=== PATIENT | female | born 1985 | race Caucasian/White ===

== ENCOUNTER → 2020-02-05 | Outpatient (REF) | payer OTHER ==
[2020-02-05 13:48] LABS: THYROID STIMULATING HORMONE 0.694 uIU/ML (0.358-3.740)
[2020-02-05 13:50] LABS: ESTRADIOL 349.2 PG/ML; PROGESTERONE 24.24 NG/ML
== END ==
LOC: M LABDRWAD 13:17
PROVIDERS: ATTEND Obstetrics & Gynecology Reproductive Endocrinology
DX: Z32.01 Encounter for pregnancy test, result positive (principal)

== ENCOUNTER → 2020-02-12 | Outpatient (CLI) | payer OTHER ==
--- NOTE | 2020-02-12 09:07 | REPVR ---
PROCEDURE INFORMATION: Exam: US , Transvaginal Exam date and time: 02/12/2020 8:18 AM Age: 34 years old Clinical indication: Screening exam; Routine US, uterus; Additional info: Dating and viability . Last menstrual period 01/08/2020. TECHNIQUE: Imaging protocol: Real-time transvaginal obstetrical ultrasound of the maternal pelvis and a first trimester with image documentation. Transvaginal imaging was used for better evaluation of the fetus and adnexa. COMPARISON: No relevant prior studies available. FINDINGS: Gestation: A circumscribed ovoid fluid collection within the uterine fundus compatible with a gestational sac and this appears to contain a small rounded yolk sac. Mean gestational sac diameter = 0.7 cm. No pole is identified. Visualization of the gestational sac is limited due to the position of the uterus within the pelvis. BIOMETRY: Gestational age (AUA): Estimated gestational age (based on mean gestational sac diameter) = 5 weeks 3 days. MATERNAL: Uterus: No uterine mass is visualized. Right adnexa: The right ovary measures 2.1 x 1.2 x 2.2 cm. The right ovary demonstrates color Doppler blood flow. No right adnexal mass is imaged. Left adnexa: The left ovary measures 2 x 1.4 x 1.7 cm. The left ovary demonstrates color Doppler blood flow. No left adnexal mass is imaged. IMPRESSION: Findings consistent with intrauterine with uncertain viability. Estimated gestational age is 5 weeks 3 days. Short-term follow-up ultrasound is recommended to confirm viability. Electronically signed by: Sean Lemons On 02/12/2020 09:06:35 AM
[2020-02-12 09:53] LABS: ESTRADIOL 292.3 PG/ML; PROGESTERONE 24.06 NG/ML
== END ==
LOC: M RAD 08:09
PROVIDERS: ATTEND Obstetrics & Gynecology Reproductive Endocrinology
DX: O09.01 Supervision of pregnancy with history of infertility, first trimester (principal); Z3A.01 Less than 8 weeks gestation of pregnancy

== ENCOUNTER → 2020-02-19 | Outpatient (CLI) | payer OTHER ==
--- NOTE | 2020-02-19 09:14 | REPVR ---
PROCEDURE INFORMATION: Exam: US , Transvaginal Exam date and time: 02/19/2020 8:47 AM Age: 34 years old Clinical indication: Screening exam; Routine US, uterus; Prior surgery; Surgery date: 6+ months; Surgery type: HX of ; Additional info: Eval for viability TECHNIQUE: Imaging protocol: Real-time transvaginal obstetrical ultrasound of the maternal pelvis and a first trimester with image documentation. Transvaginal imaging was used for better evaluation of the fetus and adnexa. COMPARISON: US OB 02/12/2020 8:37 AM FINDINGS: Gestation: Single viable intrauterine gestation. Yolk sac is present. heart rate: heart rate is 99 bpm. BIOMETRY: Gestational age (AUA): Sonographically estimated gestational age is 6 weeks. Estimated due date (AUA): Estimated date of delivery is 10/14/2020. Nye-Rump length: Nye-rump length the pole is 4 mm. MATERNAL: Right adnexa: Right ovary measures 1.6 x 2.1 x 1.4 cm. Left adnexa: Left ovary measures 2 x 2 x 1.7 cm. IMPRESSION: Single viable intrauterine gestation 6 weeks of age. Electronically signed by: Rito Pham On 02/19/2020 09:14:33 AM
== END ==
LOC: M RAD 08:19
PROVIDERS: ATTEND Obstetrics & Gynecology Reproductive Endocrinology
DX: O09.00 Supervision of pregnancy with history of infertility, unspecified trimester (principal); Z3A.01 Less than 8 weeks gestation of pregnancy

== ENCOUNTER → 2020-02-19 | Outpatient (CLI) | payer OTHER ==
[2020-02-19 12:36] LABS: PROGESTERONE 22.72 NG/ML
== END ==
LOC: M LAB 08:48
PROVIDERS: ATTEND Obstetrics & Gynecology Reproductive Endocrinology
DX: O09.00 Supervision of pregnancy with history of infertility, unspecified trimester (principal); Z3A.01 Less than 8 weeks gestation of pregnancy

== ENCOUNTER → 2020-02-26 | Outpatient (CLI) | payer OTHER ==
--- NOTE | 2020-02-26 09:39 | REPVR ---
PROCEDURE INFORMATION: Exam: US First Trimester, Transabdominal and US , Transvaginal Exam date and time: 02/26/2020 8:16 AM Age: 34 years old Clinical indication: Screening exam; Routine US, uterus; Additional info: Eval iup TECHNIQUE: Imaging protocol: Real-time transabdominal obstetrical ultrasound of the maternal pelvis and a first trimester , less than 14 weeks 0 days, with image documentation. Transvaginal imaging was used for better evaluation of the fetus and adnexa. COMPARISON: TRANSVAGINAL US 02/19/2020 8:46 AM FINDINGS: Gestation: Single intrauterine gestational sac. Single yolk sac. Single pole. Embryonic/ heart rate: heart rate measures 122 bpm. Placenta: Unremarkable. No subchorionic bleed. Amniotic fluid: Amniotic fluid is normal for gestational age. BIOMETRY: Gestational age (AUA): [place]-rump length measures 12 mm, compatible with a gestational age of 7 weeks and 3 days. Estimated due date (AUA): Estimated date of delivery is October 11, 2020. MATERNAL: Uterus: Unremarkable. Cervix: Unremarkable. Right adnexa: Normal appearing right ovary. Left adnexa: Normal appearing left ovary. Intraperitoneal space: No intraperitoneal free fluid. IMPRESSION: Single viable intrauterine gestation, dating 7 weeks and 3 days. Appropriate interval growth. Electronically signed by: La Ward On 02/26/2020 09:39:17 AM
[2020-02-26 09:59] LABS: PROGESTERONE 30.95 NG/ML
== END ==
LOC: M RAD 07:56
PROVIDERS: ATTEND Obstetrics & Gynecology Reproductive Endocrinology
DX: O09.00 Supervision of pregnancy with history of infertility, unspecified trimester (principal)

== ENCOUNTER → 2020-03-16 | Outpatient (REF) | payer OTHER ==
[2020-03-16 14:11] LABS: HEMATOCRIT 39.7 % (36.0-47.0); HEMOGLOBIN 13.2 g/dl (12.0-15.5); MEAN CORPUSCULAR HEMOGLOBIN 32.9 pg (27.0-33.0); MEAN CORPUSCULAR HGB CONC 33.2 g/dl (32.0-36.5); PLATELET COUNT, AUTOMATED 263 10^3/uL (150-450); RED BLOOD COUNT 4.01 10^6/uL (4.00-5.40)
[2020-03-16 14:17] LABS: GLUCOSE CHALLENGE TEST 1 HOUR 145 MG/DL (LESS THAN 140)
[2020-03-16 14:31] LABS: HEMOGLOBIN A1c 5.1 %
[2020-03-16 15:08] LABS: HEPATITIS C VIRUS ABY INDEX 0.8 INDEX (<0.8)
[2020-03-16 15:09] LABS: HIV 1&2 SCREEN CENTAUR NEGATIVE (NEGATIVE)
== END ==
LOC: M PLALAB 09:33
PROVIDERS: ATTEND Advanced Practice Midwife
DX: O34.211 Maternal care for low transverse scar from previous cesarean delivery (principal)

== ENCOUNTER → 2020-03-18 | Outpatient (CLI) | payer OTHER | LOC: M LAB 08:04 | PROVIDERS: ATTEND Advanced Practice Midwife | DX: O34.211 Maternal care for low transverse scar from previous cesarean delivery (principal); Z3A.00 Weeks of gestation of pregnancy not specified ==

== ENCOUNTER → 2020-05-25 | Outpatient (CLI) | payer OTHER ==
--- NOTE | 2020-05-25 10:48 | REP ---
INDICATION: ANATOMY COMPARISON: None. TECHNIQUE: Transabdominal obstetrical ultrasound with color Doppler evaluation. FINDINGS: Examination demonstrates a single live intrauterine in transverse (head to maternal right) presentation. motion is identified by technologist. Placenta is noted posterior and grade 1 without evidence for placenta previa or abruption. Amniotic fluid volume is normal. Cervix measures 3.3 cm in length and appears closed.. Gestational age by LMP 20 weeks 1 day with MARTHA 10/11/2020. Gestational age by current measurements 20 weeks 0 days with MARTHA 10/12/2020. FHR equals 132 beats per minute. BPD: 4.6 cm 19 weeks 6 days HC: 17.4 cm 19 weeks 6 days AC: 15.0 cm 20 weeks 2 days FL: 3.2 cm 20 weeks 0 days HL: 3.1 cm 20 weeks 1 day HC/AC: 1.16 Estimated weight 331 grams (44thpercentile). Anatomical assessment demonstrates normal structures including cranium, choroid plexus, cavum, cerebellum/posterior fossa, facial features, lungs, diaphragm, stomach, cord insertion/three-vessel cord, kidneys/bladder, spine, and extremities. IMPRESSION: 1. Single live intrauterine in transverse lie demonstrating appropriate interval growth. 2. Limited evaluation of the four-chamber heart and cardiac ventricular outflow tract. Remainder of the anatomical assessment is complete and normal. <Electronically signed by Alex Manzanares > 05/25/20 [id number]
== END ==
LOC: M WHC 08:35
PROVIDERS: ATTEND Advanced Practice Midwife
DX: O09.522 Supervision of elderly multigravida, second trimester (principal); O34.219 Maternal care for unspecified type scar from previous cesarean delivery; Z3A.20 20 weeks gestation of pregnancy
CPT/HCPCS: 76811; 90471; 90686; G0463

== ENCOUNTER → 2020-06-19 | Outpatient (REF) | payer OTHER | LOC: M PLALAB 12:00 | PROVIDERS: ATTEND Obstetrics & Gynecology | DX: Z34.82 Encounter for supervision of other normal pregnancy, second trimester (principal) ==

== ENCOUNTER → 2020-06-25 | Outpatient (CLI) | payer OTHER ==
--- NOTE | 2020-06-26 04:24 | REP ---
INDICATION: F/U ANATOMY COMPARISON: 05/25/2020 TECHNIQUE: Transabdominal obstetrical ultrasound with color Doppler evaluation. FINDINGS: Examination demonstrates a single live intrauterine in cephalic presentation. motion is identified by technologist. Placenta is noted posterior and grade 1 without evidence for placenta previa or abruption. Amniotic fluid volume is normal. Cervix measures 3.0 cm in length and appears closed.. Gestational age by LMP twenty-four weeks 4 days with MARTHA 10/11/2020. Gestational age by current measurements 24 weeks 4 days with MARTHA 10/11/2020. FHR equals 144 beats per minute. Estimated weight 734 grams (49thpercentile). Anatomical assessment demonstrates normal structures including four-chamber heart and ventricular outflow tracts.. IMPRESSION: Single live intrauterine in cephalic presentation. In conjunction with prior examination anatomical assessment is complete and normal. <Electronically signed by Alex Manzanares > 06/26/20 [id number]
== END ==
LOC: M WHC 09:46
PROVIDERS: ATTEND Obstetrics & Gynecology
DX: Z34.82 Encounter for supervision of other normal pregnancy, second trimester (principal); Z36.2 Encounter for other antenatal screening follow-up; Z3A.24 24 weeks gestation of pregnancy

== ENCOUNTER → 2020-07-14 | Outpatient (CLI) | payer OTHER | LOC: M LAB 07:49 | PROVIDERS: ATTEND Obstetrics & Gynecology | DX: Z34.90 Encounter for supervision of normal pregnancy, unspecified, unspecified trimester (principal); Z3A.00 Weeks of gestation of pregnancy not specified ==

== ENCOUNTER → 2020-08-18 | Outpatient (CLI) | payer OTHER ==
--- NOTE | 2020-08-19 10:53 | REP ---
INDICATION: MACROSOMIA IN THIRD TIMESTER COMPARISON: 06/25/2020 TECHNIQUE: Transabdominal obstetrical ultrasound with color Doppler evaluation. FINDINGS: Examination demonstrates a single live intrauterine in cephalic presentation. motion is identified by technologist. Placenta is noted posterior and grade 1 without evidence for placenta previa or abruption. Amniotic fluid volume is normal. Cervix measures 3.3 cm in length and appears closed. NEO: 19.7 cm (8.5-24.3). Gestational age by LMP 32 weeks 2 days with MARTHA 10/11/2020. Gestational age by 1st U/S 31 weeks 6 days with MARTHA 10/14/2020 Gestational age by current measurements 32 weeks 4 days with MARTHA 10/09/2020. FHR equals 130 beats per minute. BPD: 8.3 cm at 33 weeks 3 days HC: 30.2 cm at 33 weeks 4 days AC: 28.9 cm at 32 weeks 6 days FL: 6.0 cm at 31 weeks 2 days HL: 5.4 cm at 31 weeks 3 days HC/AC: 1.05 Estimated weight 1989 grams (46thpercentile). IMPRESSION: Single live advanced gestation in cephalic presentation demonstrating appropriate estimated weight <Electronically signed by Alex Manzanares > 08/19/20 [id number]
== END ==
LOC: M WHC 14:23
PROVIDERS: ATTEND Obstetrics & Gynecology
DX: O36.63X0 Maternal care for excessive fetal growth, third trimester, not applicable or unspecified (principal)

== ENCOUNTER → 2020-09-14 | Outpatient (REF) | payer OTHER ==
[~2020-09-14] MED LIST: COLA100C5 PO; ECOT81TA5 PO; FOLI400T13 PO; PREN1CHW6 PO
== END ==
LOC: M PLALAB 12:44
PROVIDERS: ATTEND Obstetrics & Gynecology
DX: Z36.85 Encounter for antenatal screening for Streptococcus B (principal); Z3A.36 36 weeks gestation of pregnancy
CPT/HCPCS: 87081; G0463

== ENCOUNTER → 2020-09-30 | Outpatient (CLI) | payer OTHER | LOC: M LABSMTC 09:41 | PROVIDERS: ATTEND Anesthesiology | DX: Z01.812 Encounter for preprocedural laboratory examination (principal); Z20.822 Contact with and (suspected) exposure to COVID-19 ==

== ENCOUNTER 2020-10-05 05:47 | Inpatient (IN) | payer OTHER ==
[2020-10-05] VITALS (7 sets, daily range): BP systolic 116–135; BP diastolic 58–78
[~2020-10-05] VITALS: Ht 167.6 cm; Wt 106.5 kg
[2020-10-05] MEDS ORDERED: BICITRA 30ML SOLN UDC PO ONE (06:00)
[2020-10-05] MEDS ORDERED: ceFAZolin SOD 2 GM in IV 1 EA IV ONE (06:00)
[2020-10-05] MEDS ORDERED: LR 800 ML IV ONE (06:00)
[2020-10-05 06:48] LABS: HEMATOCRIT 33.9 % (36.0-47.0); HEMOGLOBIN 11.4 g/dl (12.0-15.5); MEAN CORPUSCULAR HEMOGLOBIN 31.9 pg (27.0-33.0); MEAN CORPUSCULAR HGB CONC 33.6 g/dl (32.0-36.5); PLATELET COUNT, AUTOMATED 186 10^3/uL (150-450); RED BLOOD COUNT 3.57 10^6/uL (4.00-5.40); WHITE BLOOD COUNT 11.4 10^3/uL (4.0-10.0)
[2020-10-05] MEDS ORDERED: LR 1,000 ML IV SCH ×2 (07:00→10:45)
[2020-10-05] MEDS ORDERED: ONDANSETRON 4MG/2ML VIAL IV PRN ×3 (07:45→10:50)
[2020-10-05] MEDS ORDERED: NALOXONE INJ 0.4MG/1ML VIAL (J2310 PER 1MG) IV PRN ×2 (07:45)
[2020-10-05] MEDS ORDERED: METOCLOPRAMIDE INJ 10MG/2ML VIAL (J2765 PER 1) IV PRN (07:45)
[2020-10-05] MEDS ORDERED: diphenhydrAMINE 50MG/ML VIAL (J1200) IV PRN (07:45)
[2020-10-05] MEDS ORDERED: NALBUPHINE HCL 10 MG/ML AMP (J2300) IV PRN ×2 (07:45→10:45)
[2020-10-05] MEDS ORDERED: MORPHINE PRES-FREE INJ 10 MG/10 ML VIAL (J2274) As Ordered ONE (08:37)
[2020-10-05] MEDS ORDERED: ePHEDrine SULFATE 25 MG/5 ML(5MG/ML) SYRINGE As Ordered ONE (08:37)
[2020-10-05] MEDS ORDERED: PHENYLephrine 500MCG 5ML (100MCG/ML) SYRINGE As Ordered ONE (08:37)
[2020-10-05] MEDS ORDERED: KETOROLAC 60MG 2ML VIAL As Ordered ONE (08:37)
[2020-10-05] MEDS ORDERED: dexameTHASONE 4 MG/ML 1ML VIAL (J1100 PER 1MG) As Ordered ONE (08:37)
[2020-10-05] MEDS ORDERED: OXYTOCIN 30 UNITS IN 0.9% NaCl 500ML IV BAG (J2590) As Ordered ONE ×2 (08:37→10:18)
[2020-10-05] MEDS ORDERED: ONDANSETRON 4MG/2ML VIAL As Ordered ONE (08:37)
[2020-10-05] MEDS ORDERED: KETAMINE HCL 200 MG/20 ML VIAL As Ordered ONE (08:47)
[2020-10-05] MEDS ORDERED: MIDAZOLAM INJ 2MG/2ML VIAL (J2250 PER 1MG) As Ordered ONE (08:47)
[2020-10-05] MEDS ORDERED: OXYTOCIN INJ 10 UNITS/ML VIAL (J2590) As Ordered ONE (09:13)
[2020-10-05] MEDS ORDERED: RHOGAM 300 MCG (1500 IU) INJ (J2790) IM SCH (10:10)
[2020-10-05] MEDS ORDERED: MEASLES,MUMPS,RUBELLA VACCINE INJ (MMR-II) (90707) SC SCH (10:10)
[2020-10-05] MEDS ORDERED: OXYTOCIN DRIP 30 UNITS in IV 1 EA IV SCH (10:10)
[2020-10-05] MEDS ORDERED: PERCOCET 5MG/325MG TAB PO PRN (10:10)
[2020-10-05] MEDS ORDERED: METHYLERGONOVINE MALEATE 0.2 MG/ML VIAL (J2210) ONE (10:38)
[2020-10-05] MEDS ORDERED: fentaNYL 100 MCG/2 ML INJECTION (J3010) IV PRN (10:45)
[2020-10-05 11:01] LABS: HEMATOCRIT 33.4 % (36.0-47.0); HEMOGLOBIN 10.7 g/dl (12.0-15.5); MEAN CORPUSCULAR HEMOGLOBIN 31.3 pg (27.0-33.0); MEAN CORPUSCULAR VOLUME 97.7 fl (80.0-96.0); PLATELET COUNT, AUTOMATED 195 10^3/uL (150-450); RED BLOOD COUNT 3.42 10^6/uL (4.00-5.40); WHITE BLOOD COUNT 16.3 10^3/uL (4.0-10.0)
--- NOTE | 2020-10-05 12:57 | RO ---
OPERATIVE NOTE DATE OF OPERATION: 10/05/2020 INDICATION FOR OPERATION: Gayla is a 34-year-old G2, now P2,0,0,2 with history of prior section for breech presentation. She also has history of macrosomia. This was an IVF . PREOPERATIVE DIAGNOSIS: Term intrauterine at 39 weeks 1 day with history of prior section, desiring repeat section, declining TOLAC. POSTOPERATIVE DIAGNOSIS: Term intrauterine at 39 weeks 1 day with history of prior section, desiring repeat section, declining TOLAC; extensive adhesions between uterus and anterior layers including the bladder and peritoneal wall; bowel adhesions to the uterus posteriorly. MATERIAL FORWARDED TO THE LAB FOR EXAMINATION: None. DESCRIPTION OF FINDINGS: Female infant in cephalic presentation, Apgars 8 and 9, weight 3930 gm or 8 pounds 11 ounces. Normal appearing fallopian tubes and ovaries. Uterus densely adhered to the anterior abdominal wall including peritoneum and bladder. Bowel was adhered to the posterior wall of the uterus with filmy adhesions. INFECTION CLASSIFICATION: 2. ESTIMATED BLOOD LOSS: 1000 mL. IV FLUIDS: 2500 mL of lactated Ringer's. URINE OUTPUT: 175 mL of clear yellow urine. Notably the bladder was back filled during the procedure to ensure that there was no injury to the bladder and we observed the bladder dome to be intact. PROCEDURE: Repeat low transverse section and adhesiolysis. SURGEON: MD Dr. Feliz Putnam was called to the OR to assist given the dense adhesions between the uterus and anterior layers including the bladder. His assistance was necessary for retraction, visualization, adhesiolysis, delivery of the baby and closure of subsequent layers. DATABASE ADMINISTRATION ASSOCIATE: Susan Pineda CNM CLINICAL SERVICE: Obstetrics. ANESTHESIA: spinal DESCRIPTION OF PROCEDURE: After obtaining informed consent, the patient was taken to the operating room. She had a reactive NST prior. She received spinal anesthesia. Campos catheter and bilateral sequential compression devices were placed. She was prepped and draped in normal sterile fashion in dorsal supine position with left lateral tilt. Time out was performed to confirm patient name, date of , procedure and indication and team was in agreement. She received 2 gm of IV Ancef prophylactically. Spinal anesthesia was found to be adequate using Allis clamp. Pfannenstiel skin incision was made with the scalpel and carried through to the underlying layer of fascia with assistance of Bovie cautery. The fascia was incised in the midline and the incision was extended laterally with Saavedra scissors. There was scarring in the subcutaneous layer involving the fascia as well. Superior and inferior aspects of the fascial incision were grasped with Tia clamps, elevated and the underlying rectus muscles were dissected off bluntly and sharply. Peritoneum was entered unintentionally as the fascial incision was being dissected off the rectus muscles. At that point we observed that there was dense adhesion of the uterus nearly up to the fundus to the peritoneal wall with the bladder involved. Using Bovie cautery and Metzenbaum scissors the anterior abdominal wall was dissected away from the anterior uterine wall but this took an extensive amount of time and Dr. Lopez was called at that point for assistance. The bladder was very carefully taken down from the anterior uterine wall at the point the bladder became involved and it was pushed down away from the uterus and the vesicouterine peritoneal fold was actually noted at that point. Mobius retractor was inserted for assistance and then lower uterine segment was scored in transverse fashion with scalpel. The uterus was entered bluntly, incision was extended with traction, clear amniotic fluid was noted. Infant's head was elevated to the level of the incision, fundal pressure was applied, head was delivered atraumatically in OT position. Anterior shoulder, posterior shoulder and corpus were delivered without difficulty. Nose and mouth were suctioned with bulb suction. Cord was clamped x2 and cut. Infant was handed off to the awaiting team. Placenta was then removed with traction on the cord and uterine massage. The uterus was left in situ at that point but cleared of all clot and debris. There was brisk bleeding noted. She was given bolus of Pitocin IV as well as 0.2 mg of I.M. Methergine. Uterine incision was repaired with #0 Vicryl suture in running locking fashion and second layer of #0 Monocryl used to close the hysterotomy incision in imbricating fashion. Uterine incision was inspected and while there was initially hemostasis we noted that there was bulging below the hysterotomy incision and when the peritoneum was inspected at that point blood clot emanated from the opening and we exteriorized the uterus and were able to note that there was an inferior extension down toward the cervix which was closed with #0 Vicryl suture in running fashion after suctioning a large amount of clot out from the lower uterine segment and performing massage of the uterus getting good tone. At that point uterine incision was inspected, hemostasis was noted. Given that we were suturing close to the bladder and given how adhered the bladder was before we took the adhesions down, we made the decision to back fill the bladder with formula and once that was performed we noted that there were no defects in the bladder and the formula was removed from the bladder. We used #0 Vicryl in several [id number] towards the fundus of the uterus where the dense adhesions from the anterior peritoneum were previously taken down as there was bleeding and defects in the serosa of the uterus. At the end of our repair there was complete hemostasis noted. Posteriorly we noted large bowel was adhered to the back of the uterus with dense filmy adhesions. These were taken down with Bovie cautery and there was complete removal of the bowel adhesions from the uterine wall. We observed for hemostasis and placed the bowel back into the abdomen and then the uterus. Gutters were cleared of all clots. Renetta was applied along the suture line along the bladder fold and there was no further bleeding noted. We were not able to close the peritoneum given the dense adhesions previously described. The fascia was reapproximated with #0 Vicryl suture in running fashion. Subcutaneous tissue was copiously irrigated, Jenna's fascia was reapproximated using 3-0 Vicryl suture in running fashion in two layers, skin edges were reapproximated using interrupted stitches with 3-0 Vicryl suture followed by running subcuticular stitch using 4-0 Monocryl suture. Incision was cleaned using wet lap and dried with dry lap. Steri-Strips were applied. An Optifoam dressing was applied overlying. The vagina was cleared of all blood clot without active bleeding noted. I placed 800 mcg of Cytotec prophylactically in the rectum to prevent any further bleeding in the future. Fundus was firm at U-1 cm. All counts were correct x2. The patient tolerated the procedure well and was taken to the recovery room on labor and delivery in stable condition. WIN
[2020-10-05] MEDS: KETOROLAC 30 MG/ML 1ML VIAL IV SCH ×2 (15:26→20:28)
[2020-10-05] MEDS ORDERED: ceFAZolin SOD 2 GM in D5W MINI-BAG PLUS 50 ML IV SCH (16:00)
[2020-10-05] MEDS: ceFAZolin SOD 2 GM in IV 1 EA IV SCH ×2 (16:13→23:17)
[2020-10-05] MEDS: DOCUSATE SODIUM 100MG CAPSULE PO SCH (20:26)
[2020-10-05] MEDS: SIMETHICONE 80MG CHEW TAB PO PRN (23:17)
[2020-10-06] MEDS: LR 1,000 ML IV SCH ×2 (00:20→05:10)
[2020-10-06 02:00] VITALS: BP 117/56
[2020-10-06] MEDS: KETOROLAC 30 MG/ML 1ML VIAL IV SCH (03:54)
[2020-10-06] MEDS: SIMETHICONE 80MG CHEW TAB PO PRN (04:54)
[2020-10-06 06:00] VITALS: BP 105/53
[2020-10-06 07:52] LABS: HEMATOCRIT 24.4 % (36.0-47.0); MEAN CORPUSCULAR HEMOGLOBIN 32.4 pg (27.0-33.0); MEAN CORPUSCULAR HGB CONC 33.6 g/dl (32.0-36.5); MEAN CORPUSCULAR VOLUME 96.4 fl (80.0-96.0); PLATELET COUNT, AUTOMATED 164 10^3/uL (150-450); RED BLOOD COUNT 2.53 10^6/uL (4.00-5.40); WHITE BLOOD COUNT 10.3 10^3/uL (4.0-10.0)
[2020-10-06] MEDS: ceFAZolin SOD 2 GM in IV 1 EA IV SCH (07:55)
[2020-10-06 07:58] LABS: HEMOGLOBIN 8.2 g/dl (12.0-15.5)
[2020-10-06] MEDS ORDERED: PERCOCET PO (09:22)
[2020-10-06] MEDS ORDERED: DOK1CAP7 PO (09:22)
[2020-10-06] MEDS ORDERED: IBUP80TA PO (09:22)
--- NOTE | 2020-10-06 09:33 | IPNPDOC ---
Progress Note Date of Service: October 06, 2020 Day#: 1 Progress Note SUBJECT: Doing well without complaints. Ambulating, voiding and pain is well- controlled. Reports minimal lochia. OBJECTIVE: VITAL SIGNS: Within normal limits, afebrile. Alert and oriented times three. Abdomen: Fundus firm at U-2. Soft, NTTP. Incision: dressed Ext: neg calf tenderness. ASSESSMENT: /postoperative day #1 status post delivery. Recovering in stable condition. PLAN: 1. Continue routine /postoperative care 2. Discharge plans for tomorrow VS, I&O, 24H, Fishbone Vital Signs/I&O Vital Signs Date Time Temp Pulse Resp B/P (MAP) Pulse Ox O2 Delivery O2 Flow Rate FiO2 10/06/20 08:22 18 10/06/20 06:00 98.6 94 105/53 (70) 97 Room Air I&O- Last 24 Hours up to 6 AM 10/06/20 06:00 Intake Total 2275 ml Output Total 2365 ml Balance -90 ml Laboratory Data 24H LABS Laboratory Tests 2 10/05/20 10:45: Nucleated Red Blood Cells % (auto) 0.0 10/06/20 06:59: Nucleated Red Blood Cells % (auto) 0.0 CBC/BMP Laboratory Tests 10/05/20 10:45 10/06/20 06:59 CHARLES MATTA MD. October 06, 2020 09:33
[2020-10-06 10:00] VITALS: BP 111/57
[2020-10-06] MEDS: PRENATAL VITAMINS CHEWABLE TABLET PO SCH (11:00)
[2020-10-06] MEDS: DOCUSATE SODIUM 100MG CAPSULE PO SCH ×2 (11:00→20:08)
[2020-10-06] MEDS: IBUPROFEN 800 MG TAB PO SCH ×2 (11:00→19:16)
[2020-10-06 14:00] VITALS: BP 108/55
[2020-10-06 18:00] VITALS: BP 113/61
[2020-10-06] MEDS: PERCOCET 5MG/325MG TAB PO PRN (18:20)
[2020-10-06 22:00] VITALS: BP_SYST 109; BP_SYST 110; BP_DIAS 53; BP_DIAS 67
[2020-10-07] MEDS: PERCOCET 5MG/325MG TAB PO PRN (01:35)
[2020-10-07 02:00] VITALS: BP 124/58
[2020-10-07] MEDS: IBUPROFEN 800 MG TAB PO SCH ×2 (02:05→12:02)
[2020-10-07] MEDS: SIMETHICONE 80MG CHEW TAB PO PRN (02:05)
[2020-10-07 05:54] VITALS: BP 103/58
[2020-10-07] MEDS: DOCUSATE SODIUM 100MG CAPSULE PO SCH (08:39)
[2020-10-07] MEDS: PRENATAL VITAMINS CHEWABLE TABLET PO SCH (08:39)
--- NOTE | 2020-10-14 20:21 | DS.PDOC ---
Discharge Summary General Date of Admission October 05, 2020 at 05:47 Date of Discharge 10/07/2020 Attending Physician: Radha Tristan MD Discharge Summary PROCEDURES PERFORMED DURING STAY: 1 spinal anesthesia 2 section. ADMITTING DIAGNOSES: 1. 1 breech presentation 2. History of prior section. DISCHARGE DIAGNOSES: 1. Status post repeat section. COMPLICATIONS/CHIEF COMPLAINT: Previous Section. HISTORY OF PRESENT ILLNESS: This patient presented for scheduled section which is productive of a liveborn female infant Apgars 8 and 9 weight was 3930 g 8 lbs. 11 oz. Estimated blood loss was 1000 mL. Patient did well postoperatively by postoperative day #2 had met all discharge criteria is as discharged home in stable condition. DISCHARGE MEDICATIONS: Please see below. ALLERGIES: Please see below. PHYSICAL EXAMINATION ON DISCHARGE: VITAL SIGNS: Please see below. GENERAL: No distress HEENT: WNL NECK: Supple ABDOMINAL EXAMINATION: Fundus firm. Dressing intact EXTREMITIES: Equal strength and motion SKIN: Intact NEUROLOGICAL EXAMINATION: Grossly intact PSYCHIATRIC EXAMINATION: Appropriate LABORATORY DATA: Please see below. PROGNOSIS: Good ACTIVITY: As tolerated. Pelvic rest. DIET: As tolerated DISCHARGE PLAN: Discharge today. Follow-up in 1-2 weeks. Remove dressing day 5 DISPOSITION: Home DISCHARGE INSTRUCTIONS: 1. Pelvic rest. Continue vitamins. Medications as ordered. Call with fever, nausea, vomiting, chills, foul lochia, wound exudate or evidence infection. RTO early next week for blood pressure check. DISCHARGE CONDITION: Stable Discharge Medications Scheduled Docusate Sodium (Dok) 100 Mg Capsule, 100 MG PO BID Folic Acid (Folic Acid) 0.4 Mg Tablet, 400 MCG PO DAILY, (Reported) Ibuprofen (Ibuprofen) 800 Mg Tablet, 800 MG PO Q8H Vit37/Iron/Folic Acid ([place]ata Chewable Tablet) 1 Each Tab.chew, 1 CHW PO DAILY, (Reported) Scheduled PRN Oxycodone/Acetaminophen (Oxycodone-Acetaminophen 5-325) 1 Each Tablet, 1 TAB PO Q4H PRN for MILD/MODERATE PAIN (PS 1-7) Allergies Coded Allergies: No Known Allergies (Unverified , 09/21/20) CHARLES MATTA MD. October 14, 2020 20:21
== END 2020-10-07 12:10 | disposition home or self-care (01) | DRG 773 ==
LOC: M LDI 05:47 → M OBS 11:30
PROVIDERS: ADMIT Obstetrics & Gynecology; ATTEND Obstetrics & Gynecology
PROC: 0UN90ZZ Release Uterus, Open Approach (ICD-10-PCS; principal; 2020-10-05 07:30)
PROC: 10D00Z1 Extraction of Products of Conception, Low, Open Approach (ICD-10-PCS; principal; 2020-10-05 07:30)
PROC: 0UC90ZZ Extirpation of Matter from Uterus, Open Approach (ICD-10-PCS; principal; 2020-10-05 07:30)
PROC: 0TNB0ZZ Release Bladder, Open Approach (ICD-10-PCS; principal; 2020-10-05 07:30)
DX: O34.211 Maternal care for low transverse scar from previous cesarean delivery (principal); Z3A.39 39 weeks gestation of pregnancy; Z37.0 Single live birth; O32.1XX0 Maternal care for breech presentation, not applicable or unspecified; O94 Sequelae of complication of pregnancy, childbirth, and the puerperium; N32.89 Other specified disorders of bladder

== ENCOUNTER → 2021-10-20 | Outpatient (CLI) | payer OTHER ==
[~2021-10-20] MED LIST changes: +DOK1CAP4 PO; +IBUP80TA PO; +PERCOCET PO
== END ==
LOC: M WHC 07:37
PROVIDERS: ATTEND Nurse Practitioner Adult Health
DX: Z01.411 Encounter for gynecological examination (general) (routine) with abnormal findings (principal)

== ENCOUNTER → 2021-11-12 | Outpatient (CLI) | payer OTHER | LOC: M WHC 08:07 | PROVIDERS: ATTEND Nurse Practitioner Adult Health | DX: N85.00 Endometrial hyperplasia, unspecified (principal) ==

== ENCOUNTER → 2021-12-20 | Outpatient (REF) | payer OTHER | LOC: M PLALAB 15:58 | PROVIDERS: ATTEND Nurse Practitioner Family | DX: Z53.9 Procedure and treatment not carried out, unspecified reason (principal) ==

== ENCOUNTER → 2022-02-16 | Outpatient (REF) | payer OTHER | LOC: M SFHCWAGY 13:32 | PROVIDERS: ATTEND Obstetrics & Gynecology | DX: N93.9 Abnormal uterine and vaginal bleeding, unspecified (principal) ==

== ENCOUNTER → 2022-04-04 | Outpatient (CLI) | payer OTHER ==
[2022-04-04 13:58] LABS: BASO % 0.2 % (0.0-1.0); EOS # 0.1 10^3/uL (0.0-0.5); EOS % 0.6 % (0.0-3.0); HEMATOCRIT 42.8 % (36.0-47.0); LYMPH # 3.1 10^3/uL (1.5-5.0); MEAN CORPUSCULAR HEMOGLOBIN 31.5 pg (27.0-33.0); MEAN CORPUSCULAR HGB CONC 32.7 g/dl (32.0-36.5); MEAN CORPUSCULAR VOLUME 96.2 fl (80.0-96.0); MONO # 0.7 10^3/uL (0.0-0.8); MONO % 5.5 % (2.0-8.0); NEUTROPHILS # 8.4 10^3/uL (1.5-8.5); NEUTROPHILS % 68.1 % (36.0-66.0); PLATELET COUNT, AUTOMATED 273 10^3/uL (150-450); RED BLOOD COUNT 4.45 10^6/uL (4.00-5.40); WHITE BLOOD COUNT 12.4 10^3/uL (4.0-10.0)
[2022-04-04 14:51] LABS: ALBUMIN 3.6 GM/DL (3.2-5.2); ALT/SGPT 29 U/L (12-78); BILIRUBIN,TOTAL 0.8 MG/DL (0.2-1.0); BLOOD UREA NITROGEN 15 MG/DL (7-18); CALCIUM LEVEL 8.8 MG/DL (8.5-10.1); CARBON DIOXIDE LEVEL 27 MEQ/L (21-32); CHLORIDE LEVEL 105 MEQ/L (98-107); CREATININE FOR GFR 0.74 MG/DL (0.55-1.30); GLOMERULAR FILTRATION RATE > 60.0 (>60); GLUCOSE, FASTING 89 MG/DL (70-100); POTASSIUM SERUM 4.5 MEQ/L (3.5-5.1); SODIUM LEVEL 139 MEQ/L (136-145); TOTAL PROTEIN 7.4 GM/DL (6.4-8.2)
== END ==
LOC: M RAD 12:09
PROVIDERS: ATTEND Nurse Practitioner Adult Health
DX: J20.9 Acute bronchitis, unspecified (principal)

== ENCOUNTER → 2022-06-14 | Outpatient (CLI) | payer OTHER ==
[2022-06-14 11:11] LABS: BASO % 0.4 % (0.0-1.0); EOS # 0.1 10^3/uL (0.0-0.5); EOS % 1.3 % (0.0-3.0); HEMATOCRIT 38.8 % (36.0-47.0); HEMOGLOBIN 12.9 g/dl (12.0-15.5); LYMPH # 2.3 10^3/uL (1.5-5.0); LYMPH % 30.2 % (24.0-44.0); MEAN CORPUSCULAR HGB CONC 33.2 g/dl (32.0-36.5); MEAN CORPUSCULAR VOLUME 96.3 fl (80.0-96.0); MONO # 0.4 10^3/uL (0.0-0.8); MONO % 5.7 % (2.0-8.0); NEUTROPHILS # 4.8 10^3/uL (1.5-8.5); NEUTROPHILS % 62.1 % (36.0-66.0); PLATELET COUNT, AUTOMATED 260 10^3/uL (150-450); RED BLOOD COUNT 4.03 10^6/uL (4.00-5.40); WHITE BLOOD COUNT 7.7 10^3/uL (4.0-10.0)
[2022-06-14 11:23] LABS: ERYTHROCYTE SEDIMENTATION RATE 11 mm/hr (0-20)
[2022-06-14 11:50] LABS: FREE T4 1.05 NG/DL (0.89-1.76)
[2022-06-14 11:51] LABS: THYROID STIMULATING HORMONE 0.602 uIU/ML (0.55-4.78)
[2022-06-14 11:54] LABS: ALBUMIN 3.7 G/DL (3.2-5.2); ALKALINE PHOSPHATASE 72 U/L (46-116); ALT/SGPT 21 U/L (7.0-40); AST/SGOT 26 U/L (<34); BILIRUBIN,TOTAL 0.6 MG/DL (0.3-1.2); BLOOD UREA NITROGEN 11 MG/DL (9-23); CALCIUM LEVEL 9.2 MG/DL (8.5-10.1); CARBON DIOXIDE LEVEL 27 MMOL/L (20-31); CHLORIDE LEVEL 108 MMOL/L (98-107); CREATININE FOR GFR 0.68 MG/DL (0.55-1.30); GLOMERULAR FILTRATION RATE > 60.0 (>60); GLUCOSE, FASTING 93 MG/DL (60-100); POTASSIUM SERUM 4.5 MMOL/L (3.5-5.1); SODIUM LEVEL 141 MMOL/L (136-145); TOTAL PROTEIN 6.7 G/DL (5.7-8.2)
[2022-06-14 13:24] LABS: C REACTIVE PROTEIN QUANTITATIV < 0.40 MG/DL (<1.0)
== END ==
LOC: M RAD 10:18
PROVIDERS: ATTEND Nurse Practitioner Adult Health
DX: R59.0 Localized enlarged lymph nodes (principal); R05.3 Chronic cough

== ENCOUNTER → 2022-06-30 | Outpatient (CLI) | payer OTHER ==
[~2022-06-30] MED LIST changes: +ISOVUE-370 76% 100ML VIAL As Ordered ONE
== END ==
LOC: M RAD 10:27
PROVIDERS: ATTEND Nurse Practitioner Adult Health
DX: R59.0 Localized enlarged lymph nodes (principal)

== ENCOUNTER → 2022-08-11 | Outpatient (CLI) | payer OTHER ==
[~2022-08-11] MED LIST changes: -ISOVUE-370 76% 100ML VIAL As Ordered ONE
== END ==
LOC: M WHC 09:39
PROVIDERS: ATTEND Nurse Practitioner Adult Health
DX: D44.0 Neoplasm of uncertain behavior of thyroid gland (principal); E04.1 Nontoxic single thyroid nodule